=== PATIENT | female | born 1945 | race Caucasian/White ===

== ENCOUNTER → 2021-05-31 | Outpatient (CLI) | payer MEDICARE ==
[~2021-05-31] MED LIST: ALBUTEROL2.5 MG/3 M INH; ATENOLOL50 MG PO; DAILY VALUE1 EACH PO; FAMOTIDINE20 MG PO; ISOSORBIDE MONO60 MG PO; LIPITOR20 MG PO; LOW DOSE ASPIRI81 MG PO; PAXIL20 MG PO; TRAZODONE HCL100 MG PO; VITAMIN C1000 MG PO; WARFARIN SODIUM5 MG PO
== END ==
LOC: KOH-I 15:30
DX: S42.351A Displaced comminuted fracture of shaft of humerus, right arm, initial encounter for closed fracture (principal)
CPT/HCPCS: 73200

== ENCOUNTER → 2021-06-03 | Day surgery (SDC) | payer MEDICARE ==
[2021-06-03 12:51] LABS: HEMOGLOBIN 13.3 gm/dl (12.3-15.3); RED BLOOD COUNT 4.49 M/UL (4.00-5.10); WHITE BLOOD COUNT 9.1 K/UL (4.5-11.0)
[2021-06-03 13:10] LABS: BUN/CREATININE RATIO 16 (0-10)
== END | disposition home or self-care (01) ==
LOC: OPSV2 10:30
PROVIDERS: Orthopaedic Surgery
DX: Z01.818 Encounter for other preprocedural examination (principal); S42.201A Unspecified fracture of upper end of right humerus, initial encounter for closed fracture; S42.131A Displaced fracture of coracoid process, right shoulder, initial encounter for closed fracture; S42.141A Displaced fracture of glenoid cavity of scapula, right shoulder, initial encounter for closed fracture; X58.XXXA Exposure to other specified factors, initial encounter
CPT/HCPCS: 36415; 80048; 85027; 85610; 85730; 86850; 86900; 86901; 93005

== ENCOUNTER 2021-06-04 09:43 | Day surgery (SDC) | payer MEDICARE ==
[~2021-06-04] VITALS: Ht 165.1 cm; Wt 127.2 kg
[2021-06-05 06:38] LABS: HEMOGLOBIN 11.1 gm/dl (12.3-15.3); RED BLOOD COUNT 3.83 M/UL (4.00-5.10); WHITE BLOOD COUNT 11.6 K/UL (4.5-11.0)
[2021-06-05 06:44] LABS: BUN/CREATININE RATIO 21 (0-10)
== END 2021-06-05 14:32 | disposition home or self-care (01) ==
LOC: OR 09:43 → M/S 18:37 → OR 06-05 14:32
PROVIDERS: Internal Medicine; Orthopaedic Surgery
DX: S42.201A Unspecified fracture of upper end of right humerus, initial encounter for closed fracture (principal); S42.131A Displaced fracture of coracoid process, right shoulder, initial encounter for closed fracture; S42.141A Displaced fracture of glenoid cavity of scapula, right shoulder, initial encounter for closed fracture; I10 Essential (primary) hypertension; E78.5 Hyperlipidemia, unspecified; I25.10 Atherosclerotic heart disease of native coronary artery without angina pectoris; J45.909 Unspecified asthma, uncomplicated; K21.9 Gastro-esophageal reflux disease without esophagitis; M19.90 Unspecified osteoarthritis, unspecified site; Z79.82 Long term (current) use of aspirin; Z79.01 Long term (current) use of anticoagulants; Z79.899 Other long term (current) drug therapy; W01.0XXA Fall on same level from slipping, tripping and stumbling without subsequent striking against object, initial encounter
CPT/HCPCS: 36415; 73020; 80048; 85025; 85610; 94664; 94760; 97110; 97163; 97530; 97760; C1713; C1776; J0171; J0690; J1100; J1885; J2001; J2405; J2710; J2795; J3010; J7120